=== PATIENT | male | born 1960 | race Caucasian/White ===

== ENCOUNTER 2016-11-16 13:49 | Emergency (ER) | payer OTHER, MEDICARE ==
[~2016-11-16] VITALS: Ht 157.5 cm; Wt 81.6 kg
[~2016-11-16 13:49] MED LIST: VALTREX1 GM PO; ZOVIRAX5% TOP
--- NOTE | 2016-11-16 14:43 | ED GENERAL ADULT ---
See Addendum History of Present Illness General Chief Complaint: Dyspnea (COPD, CHF, Other) Stated Complaint: BREATHING PROBLEMS/CONGESTION X 1 WEEK Source: patient, family Exam Limitations: no limitations Vital Signs & Intake/Output Vital Signs & Intake/Output Vital Signs Date Time Temp Pulse Resp B/P Pulse O2 O2 Flow FiO2 Ox Delivery Rate 11/16 1606 97.7 74 18 153/95 96 Room Air 11/16 1525 98 Room Air 11/16 1359 97.3 76 20 158/90 97 Room Air Allergies Coded Allergies: NO KNOWN ALLERGIES (08/30/11) Reconcile Medications Acyclovir (Zovirax) 5% OIN 1 CHUNG TOP TID ZOSTER Codeine Phosphate/Guaifenesi (Guaifenesin AC Cough Syrup) 10 MG-100 MG/5 ML LIQUID 1 TSP PO AT BEDTIME PRN COUGH VALACYCLOVIR HCL (Valtrex) 1 GM TAB 1 TAB PO TID ZOSTER Triage Note: PT TO ED WITH SISTER (POA) FOR C/O URI S/S X 1 WEEK. SISTER STATES PT HAS COUGH, CONCERNED WITH PNEUMONIA. PT LIVES IN [place] HAS BEEN FATIGUED PER SISTER. AFEBRILE IN TRIAGE. PT ALSO C/O ABD PAIN, STARTING THIS AM PER PT. Triage Nurses Notes Reviewed? 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 He presents with several days of cough nonproductive, abdominal cramps, diarrhea and vomiting. He also has a past medical history of diabetes and restless leg syndrome. The onset of the symptoms were abrupt, the duration has been several days, the severity is significant; as his symptoms required him to come to the emergency department for care. On physical exam he is awake alert and oriented 3. He has nasal congestion. Lungs reveal bilateral rhonchi. Abdomen is soft and nontender. He denies any blood in the stool. Past History Travel History Traveled to [place] past 21 day No Medical History Any Pertinent Medical History? see below for history Neurological: juan antonio syndrome EENT: NONE Cardiovascular: NONE Respiratory: NONE Gastrointestinal: NONE Hepatic: NONE Renal: NONE Musculoskeletal: NONE Psychiatric: NONE Endocrine: NONE Blood Disorders: NONE Cancer(s): NONE PACKING MACHINE TENDER/Reproductive: NONE Surgical History Surgical History: non-contributory Psychosocial History What is your primary language Polish Tobacco Use: Never used ETOH Use: denies use Illicit Drug Use: denies illicit drug use Family History Hx Contributory? No Review of Systems Review of Systems Constitutional: Reports: fever, malaise. EENTM: Reports: nasal congestion. Respiratory: Reports: cough. Denies: short of breath. Cardiovascular: Denies: chest pain. GI: Reports: diarrhea, vomiting. Denies: abdominal pain. Genitourinary: Reports: no symptoms. Musculoskeletal: Reports: no symptoms. Skin: Denies: rash. Neurological/Psychological: Reports: no symptoms. Hematologic/Endocrine: Reports: no symptoms. Physical Exam Physical Exam General Appearance: alert, awake, anxious, mild distress Head: atraumatic Eyes: Bilateral: normal appearance, PERRL, EOMI. Ears, Nose, Throat: normal pharynx, normal ENT inspection Neck: normal inspection, supple, full range of motion Respiratory: normal breath sounds, chest non-tender, no respiratory distress Cardiovascular: regular rate/rhythm Peripheral Pulses: 4+ radial (R), 4+ radial (L) Gastrointestinal: soft, non-tender Back: normal range of motion Extremities: normal inspection Neurologic/Psych: awake, alert, oriented x 3 Skin: intact, normal color, warm/dry Core Measures ACS in differential dx? No CVA/TIA Diagnosis: No Severe Sepsis Present: No Septic Shock Present: No Progress Differential Diagnoses I considered the following diagnoses in my evaluation of the patient: [Pneumonia , bronchitis, congestive heart failure, sepsis, pneumothorax] Plan of Care: Orders Procedure Date/time Status TROPONIN LEVEL 11/16 1439 Complete COMPREHENSIVE METABOLIC PANEL 11/16 1439 Complete CBC WITHOUT DIFFERENTIAL 11/16 1439 Complete EKG 11/16 1355 Active Laboratory Tests 11/16/16 1502: Anion Gap 13, Estimated GFR > 60, BUN/Creatinine Ratio 30.0 H, Glucose 113 H, Calcium 9.5, Total Bilirubin 0.7, AST 22, ALT 37, Alkaline Phosphatase 57, Troponin I < 0.01, Total Protein 7.2, Albumin 4.0, Globulin 3.2, Albumin/ Globulin Ratio 1.3, CBC w Diff NO MAN DIFF REQ, RBC 4.88, MCV 92.5, MCH 30.8, RDW 14.3, MPV 8.5, Gran % 75.7 H, Lymphocytes % 15.5 L, Monocytes % 7.3, Eosinophils % 0.8, Basophils % 0.7, Absolute Granulocytes 6.0, Absolute Lymphocytes 1.2, Absolute Monocytes 0.6, Absolute Eosinophils 0.1, Absolute Basophils 0.1, PUBS MCHC 33.2 Initial ED EKG: NSR, nonspecific ST T wave chg Departure Departure Disposition: HOME OR SELF CARE Condition: Stable Clinical Impression Primary Impression: Viral syndrome Referrals: SHERI PAZ MD (PCP/Family) Departure Forms: Customer Survey General Discharge Information Prescriptions: Current Visit Scripts Codeine Phosphate/Guaifenesi (Guaifenesin AC Cough Syrup) 1 TSP PO AT BEDTIME PRN COUGH #4 Comments PATIENT: RIMA SCHNEIDER PRESENT AGE: 56 PATIENT ACCOUNT NO: [id number] : 60 LOCATION: [facility] ORDERING PHYSICIAN: ADITI COPELAND DO SERVICE DATE: 11/16/16 EXAM TYPE: RAD - XRY-CHEST XRAY, PA AND LATERAL EXAMINATION: CHEST 2 VIEWS CLINICAL INFORMATION: Cough, fever. COMPARISON: 05/08/2016. TECHNIQUE: PA and lateral views of the chest were obtained. FINDINGS: The cardiac silhouette is stable. The mediastinal and hilar contours are unremarkable. There are neither pleural effusions nor pneumothoraces. There are no consolidations. The osseous structures are unremarkable. IMPRESSION: No evidence for acute disease. DICTATED BY: BARRINGTON ACOSTA MD DATE/TIME DICTATED:11/16/161504 RESIDENTIAL LEASING MANAGER:CHAYO DATE/TIME TRANSCRIBED:11/16/161504 CONFIDENTIAL, DO NOT COPY WITHOUT APPROPRIATE AUTHORIZATION. <Electronically signed in Other Vendor System> SIGNED BY: ABRRINGTON ACOSTA MD 11/16/16 1509 11/16/16 Chest x-ray is negative. Labs are unremarkable. EKG is unchanged. We will give Robitussin AC at night he will follow-up with Dr. Paz on Friday or return to the emergency department if worse Critical Care Note Critical Care Note Critical Care Time: non-applicable
[2016-11-16 15:08] LABS: ABSOLUTE BASOPHIL COUNT 0.1 /CUMM (0.0-0.2); ABSOLUTE EOSINOPHIL COUNT 0.1 /CUMM (0.0-0.7); ABSOLUTE LYMPH COUNT 1.2 /CUMM (1.2-3.4); ABSOLUTE MONOCYTE COUNT 0.6 /CUMM (0.10-0.60); BASOPHIL % 0.7 % (0.0-2.0); EOSINOPHIL % 0.8 % (0-5); HEMATOCRIT 45.2 % (42-52); MEAN CORPUSCULAR HGB 30.8 PG (27.0-31.0); MEAN CORPUSCULAR HGB CONC 33.2 G/DL (33.0-37.0); MEAN CORPUSCULAR VOLUME 92.5 FL (80.0-94.0); MEAN PLATELET VOLUME 8.5 FL (7.4-10.4); PLATELET COUNT 218 /CUMM (130-400); RBC DISTRIBUTION WIDTH 14.3 % (11.5-14.5); RED BLOOD CELL CT 4.88 /CUMM (4.70-6.10); WHITE BLOOD CELL COUNT 7.9 /CUMM (4.8-10.8)
[2016-11-16 15:09] LABS: GRANULOCYTE % 75.7 % (42.2-75.2)
--- NOTE | 2016-11-16 15:09 | RADIOLOGY REPORT ---
EXAMINATION: CHEST 2 VIEWS CLINICAL INFORMATION: Cough, fever. COMPARISON: 05/08/2016. TECHNIQUE: PA and lateral views of the chest were obtained. FINDINGS: The cardiac silhouette is stable. The mediastinal and hilar contours are unremarkable. There are neither pleural effusions nor pneumothoraces. There are no consolidations. The osseous structures are unremarkable. IMPRESSION: No evidence for acute disease.
[2016-11-16 16:06] VITALS: BP 153/95
[2016-11-16] MEDS ORDERED: GUAIFENESIN AC473 M2 PO (16:16)
== END 2016-11-16 16:29 ==
LOC: ERH 13:49
PROVIDERS: Emergency Medicine
DX: B34.9 Viral infection, unspecified (principal); R10.9 Unspecified abdominal pain; R19.7 Diarrhea, unspecified; R11.10 Vomiting, unspecified; E11.9 Type 2 diabetes mellitus without complications
CPT/HCPCS: 93005; 93010